=== PATIENT | male | born 1990 | race Caucasian/White ===

== ENCOUNTER 2020-09-12 13:24 | Inpatient (IN) | payer OTHER ==
[~2020-09-12] VITALS: Ht 165.1 cm; Wt 65.9 kg
[2020-09-12] MEDS ORDERED: SODIUM CHLORIDE 0.9% 1,000 ML IV ONE (14:15)
[2020-09-12 14:36] LABS: BASOPHILS % 0.5 % (0.0-2.0); EOSINOPHILS % 0.2 % (0.0-5.0); LYMPHOCYTES % 9.3 % (20.0-50.0); MEAN CORPUSCULAR HEMOGLOBIN 31.2 pg (28.0-32.0); MEAN CORPUSCULAR VOLUME 103.6 fL (80.0-94.0); MEAN PLATELET VOLUME 8.2 fl (7.4-10.4); MONOCYTES % 6.9 % (2.0-8.0); NEUTROPHILS % 83.1 % (40.0-76.0); PLATELET 337 x1000/uL (130-400); RED BLOOD CELL COUNT 1.08 mill/uL (4.7-6.1); RED CELL DISTRIBUTION WIDTH 17.2 % (11.6-14.6)
[2020-09-12 14:40] LABS: CHLORIDE 108 mEq/L (98-107)
[2020-09-12 14:41] LABS: HEMATOCRIT. 11.2 % (42.0-52.0); HEMOGLOBIN. 3.4 g/dL (14.0-18.0)
[2020-09-12 14:43] LABS: INR 1.9; PARTIAL THROMBOPLASTIN TIME 33.2 sec (23.4-31.0); PROTHROMBIN TIME 19.2 sec (9.6-11.0)
[2020-09-12] MEDS ORDERED: PANTOPRAZOLE SODIUM 40 MG/VIAL IV NR (14:45)
[2020-09-12] MEDS ORDERED: PANTOPRAZOLE 80 MG in SODIUM CHLORIDE 0.9% 100 ML IV SCH ×2 (15:00→20:00)
[2020-09-12] MEDS ORDERED: OCTREOTIDE 1,000 MCG in SODIUM CHLORIDE 0.9% 100 ML IV SCH (15:11)
[2020-09-12] MEDS ORDERED: OCTREOTIDE ACETATE 50 MCG/ML 1ML IV NR (15:11)
[2020-09-12] MEDS ORDERED: PHYTONADIONE 10MG/ML AMP SUBCUT NR (16:45)
[2020-09-12] MEDS ORDERED: PIPERACILLIN/TAZOBACTAM 3.375 G in DEXT 5% WATER 100 ML IV SCH (18:00)
[2020-09-12] MEDS ORDERED: ONDANSETRON HCL 4MG/2ML INJ IV PRN (18:15)
[2020-09-12] MEDS ORDERED: PHYTONADIONE 10 MG in DEXTROSE 5% WATER 50 ML SUBCUT ONE (18:15)
[2020-09-12] MEDS ORDERED: LORAZEPAM 2MG/ML CPJ IV PRN (18:15)
[2020-09-12] MEDS ORDERED: IPRATROPIUM/ALBUTEROL 0.5-3(2.5)MG/3ML NEB NEB PRN (18:15)
[2020-09-12] MEDS ORDERED: ACETAMINOPHEN 650MG SUPP PR PRN ×2 (18:15)
[2020-09-12] MEDS ORDERED: OCTREOTIDE 1,000 MCG in SODIUM CHLORIDE 0.9% 100 ML IV ONE (18:15)
[2020-09-12] MEDS ORDERED: VASOPRESSIN 20 UNIT in SODIUM CHLORIDE 0.9% 99 ML IV PRN (18:30)
[2020-09-12] MEDS ORDERED: MULTIVITAMINS,THER W-MINERALS TABLET PO SCH (18:30)
[2020-09-12 18:55] LABS: HEMATOCRIT 10.4 % (42.0-52.0); HEMOGLOBIN 3.2 g/dL (14.0-18.0)
[2020-09-12] MEDS ORDERED: ALBUMIN HUMAN 25GM/100ML (25%) IV NR (19:00)
[2020-09-12] MEDS ORDERED: KCL 20MEQ/100ML PREMIX 100 ML IV NR (19:00)
[2020-09-12 19:03] LABS: ETHANOL BLOOD < 10 mg/dL
[2020-09-12 19:05] LABS: TOTAL IRON BINDING CAPACITY 187 ug/dL (250-450)
[2020-09-12 19:17] LABS: CARCINO EMBRYONIC ANTIGEN 1.4 ng/ml
[2020-09-12 19:20] LABS: FOLIC ACID (FOLATE) SERUM 5.6 ng/mL (>5.38)
[2020-09-12 19:29] LABS: HEPATITIS B SURFACE ANTIGEN NEGATIVE
[2020-09-12 19:58] LABS: HEPATITIS A AB IGM NEGATIVE (NEGATIVE)
[2020-09-12] MEDS ORDERED: OCTREOTIDE 1,000 MCG in SODIUM CHLORIDE 0.9% 98 ML IV SCH (20:00)
[2020-09-12] MEDS: FOLIC ACID 1 MG, THIAMINE HCL 100 MG in SODIUM CHLORIDE 0.9% 1,000 ML IV NR (21:39)
[2020-09-13] VITALS (94 sets, daily range): BP systolic 81–126; BP diastolic 46–101
[2020-09-13 01:13] LABS: HEMATOCRIT 17.2 % (42.0-52.0); HEMOGLOBIN 5.8 g/dL (14.0-18.0)
[2020-09-13] MEDS ORDERED: IOHEXOL-300 100 ML BOTTLE ONE (02:26)
[2020-09-13] MEDS: DEXT 5%/0.45% NACL 1000ML 1,000 ML IV SCH ×2 (02:30→16:51)
[2020-09-13] MEDS: PANTOPRAZOLE 80 MG in SODIUM CHLORIDE 0.9% 100 ML IV SCH ×3 (03:45→23:27)
[2020-09-13] MEDS: PIPERACILLIN/TAZOBACTAM 3.375 G in DEXT 5% WATER 100 ML IV SCH ×3 (03:46→17:50)
[2020-09-13] MEDS: VASOPRESSIN 20 UNIT in SODIUM CHLORIDE 0.9% 99 ML IV PRN ×3 (05:59→23:27)
[2020-09-13] MEDS ORDERED: PHYTONADIONE 10MG/ML AMP SUBCUT NR (06:00)
[2020-09-13] MEDS ORDERED: LIDOCAINE HCL 1% 20ML VIAL (Pyxis) INJ ONE (07:53)
[2020-09-13] MEDS ORDERED: SODIUM BICARBONATE 4% (2.4MEQ) 5ML VIAL IV ONE (07:53)
[2020-09-13] MEDS ORDERED: KETAMINE HCL 50 MG/ML 10ML ONE (09:55)
[2020-09-13] MEDS ORDERED: MIDAZOLAM HCL 2 MG/2 ML VIAL ONE (10:17)
[2020-09-13] MEDS ORDERED: LIDOCAINE HCL/PF 1% 10 MG/ML 5ML VIAL ONE ×2 (10:17→10:19)
[2020-09-13] MEDS ORDERED: PROPOFOL 200MG/20ML VIAL IV ONE (10:17)
[2020-09-13] MEDS ORDERED: FENTANYL CITRATE/PF 50MCG/ML 2ML VIAL ONE (10:17)
[2020-09-13] MEDS ORDERED: OCTREOTIDE 1,000 MCG in SODIUM CHLORIDE 0.9% 98 ML IV SCH (13:00)
[2020-09-13 13:26] LABS: BASOPHILS % 1.4 % (0.0-2.0); EOSINOPHILS % 1.1 % (0.0-5.0); HEMATOCRIT. 24.7 % (42.0-52.0); HEMOGLOBIN. 8.4 g/dL (14.0-18.0); LYMPHOCYTES % 13.1 % (20.0-50.0); MEAN CORPUSCULAR HEMOGLOBIN 31.3 pg (28.0-32.0); MEAN CORPUSCULAR VOLUME 91.7 fL (80.0-94.0); MEAN PLATELET VOLUME 8.5 fl (7.4-10.4); MONOCYTES % 7.2 % (2.0-8.0); NEUTROPHILS % 77.2 % (40.0-76.0); PLATELET 201 x1000/uL (130-400); RED CELL DISTRIBUTION WIDTH 18.5 % (11.6-14.6)
[2020-09-13 13:28] LABS: CHLORIDE 111 mEq/L (98-107)
[2020-09-13 13:29] LABS: INR 1.5; PARTIAL THROMBOPLASTIN TIME 28.4 sec (23.4-31.0); PROTHROMBIN TIME 15.3 sec (9.6-11.0)
[2020-09-13 13:35] LABS: PHOSPHORUS 2.4 mg/dL (2.5-4.9)
[2020-09-13] MEDS: LACTULOSE 20G/30ML UDC PO SCH (16:50)
[2020-09-13] MEDS: FOLIC ACID 1 MG, THIAMINE HCL 100 MG in SODIUM CHLORIDE 0.9% 1,000 ML IV NR (17:49)
[2020-09-13] MEDS ORDERED: POTASSIUM PHOS,M-BASIC-D-BASIC 10 MMOL in DEXT 5% WATER 246.6667 ML IV NR (18:00)
[2020-09-14] VITALS (9 sets, daily range): BP systolic 95–128; BP diastolic 46–69
[2020-09-14] MEDS: PIPERACILLIN/TAZOBACTAM 3.375 G in DEXT 5% WATER 100 ML IV SCH (00:36)
[2020-09-14] MEDS: LACTULOSE 20G/30ML UDC PO SCH (00:36)
[2020-09-14] MEDS: DEXT 5%/0.45% NACL 1000ML 1,000 ML IV SCH (04:06)
[2020-09-14 06:21] LABS: EOSINOPHILS % 0.6 % (0.0-5.0); HEMATOCRIT. 24.4 % (42.0-52.0); HEMOGLOBIN. 8.1 g/dL (14.0-18.0); LYMPHOCYTES % 9.2 % (20.0-50.0); MEAN CORPUSCULAR HEMOGLOBIN 30.8 pg (28.0-32.0); MEAN CORPUSCULAR VOLUME 92.6 fL (80.0-94.0); MEAN PLATELET VOLUME 8.5 fl (7.4-10.4); MONOCYTES % 5.8 % (2.0-8.0); NEUTROPHILS % 83.4 % (40.0-76.0); PLATELET 202 x1000/uL (130-400); RED BLOOD CELL COUNT 2.64 mill/uL (4.7-6.1); RED CELL DISTRIBUTION WIDTH 18.4 % (11.6-14.6)
[2020-09-14 07:29] LABS: CHLORIDE 109 mEq/L (98-107)
== END 2020-09-14 05:50 | disposition left against medical advice (07) | DRG 368 ==
LOC: ER 13:24 → MICUNO 17:10 → EDBEDREQTM 17:16 → EDBEDREQ 17:16 → ENRESERV 23:14
PROVIDERS: ADMIT Internal Medicine; ATTEND Internal Medicine
PROC: 30233K1 Transfusion of Nonautologous Frozen Plasma into Peripheral Vein, Percutaneous Approach (ICD-10-PCS; principal; 2020-09-12)
PROC: 30233N1 Transfusion of Nonautologous Red Blood Cells into Peripheral Vein, Percutaneous Approach (ICD-10-PCS; 2020-09-12)
PROC: 02HV33Z Insertion of Infusion Device into Superior Vena Cava, Percutaneous Approach (ICD-10-PCS; 2020-09-13)
PROC: B548ZZA Ultrasonography of Superior Vena Cava, Guidance (ICD-10-PCS; 2020-09-13)
PROC: 06L38CZ Occlusion of Esophageal Vein with Extraluminal Device, Via Natural or Artificial Opening Endoscopic (ICD-10-PCS; 2020-09-13)
DX: I85.11 Secondary esophageal varices with bleeding (principal); A41.9 Sepsis, unspecified organism; E43 Unspecified severe protein-calorie malnutrition; R65.21 Severe sepsis with septic shock; R57.8 Other shock; D68.9 Coagulation defect, unspecified; D62 Acute posthemorrhagic anemia; K76.6 Portal hypertension; K81.0 Acute cholecystitis; D50.9 Iron deficiency anemia, unspecified; E83.51 Hypocalcemia; E87.6 Hypokalemia; Z20.822 Contact with and (suspected) exposure to COVID-19; Z53.29 Procedure and treatment not carried out because of patient's decision for other reasons; K31.9 Disease of stomach and duodenum, unspecified; K44.9 Diaphragmatic hernia without obstruction or gangrene; K52.9 Noninfective gastroenteritis and colitis, unspecified; K74.60 Unspecified cirrhosis of liver; R73.9 Hyperglycemia, unspecified; Z68.24 Body mass index [BMI] 24.0-24.9, adult
CPT/HCPCS: 36415; 71045; 74177; 76705; 76937; 78227; 80048; 80053; 80320; 82105; 82140; 82378; 82607; 82728; 82746; 83540; 83550; 83735; 84100; 84484; 85014; 85018; 85025; 86301; 86705; 86709; 86803; 86850; 86900; 86920; 86927; 87340; 87426; 93005; 93970; 99291; A9537; C1725; C9113; J2060; J2250; J2354; J2543; J2704; J3010; J3411; J3430; J3480; J3490; J7030; J7040; J7050; J7060; P9016; P9017; P9047; Q9967; G0480